=== PATIENT | male | born 1980 | race American Indian/Alaskan Native ===

== ENCOUNTER 2016-12-07 13:58 | Emergency (ER) | payer OTHER ==
[2016-12-07 14:11] VITALS: TEMP 97.9; O2SAT 98
[2016-12-07] MEDS ORDERED: Lidocaine 1%/Epinephrine 1:100000 30 ml vial IJ STA (14:35)
--- NOTE | 2016-12-07 14:48 | C.PDOC ---
History Of Present Illness 36 yr old male presents to ER with a left axilla abscess. Patient states he was seen 2 days ago and was evaluated and given antibiotics. Patient reports the wound is now draining. Patient denies fever, nausea, vomiting, chest pain, SOB, back pain, weakness or numbness. Time Seen by Provider: 12/07/16 14:30 Chief Complaint (Nursing): Abnormal Skin Integrity History Per: Patient History/Exam Limitations: no limitations Onset/Duration Of Symptoms: Days (2 days) Past Medical History Reviewed: Historical Data, Nursing Documentation, Vital Signs Vital Signs: Last Vital Signs Temp 97.9 F 12/07/16 14:09 Pulse 81 12/07/16 14:09 Resp 16 12/07/16 14:09 BP 151/95 H 12/07/16 14:09 Pulse Ox 98 12/07/16 15:34 Family History: States: No Known Family Hx - Social History Hx Tobacco Use: Yes Hx Alcohol Use: No Hx Substance Use: No - Immunization History Hx Tetanus Toxoid Vaccination: Yes Hx Influenza Vaccination: No Hx Pneumococcal Vaccination: No Review Of Systems Except As Marked, All Systems Reviewed And Found Negative. Constitutional: Negative for: Fever Cardiovascular: Negative for: Chest Pain Respiratory: Negative for: Shortness of Breath Gastrointestinal: Negative for: Nausea, Vomiting Musculoskeletal: Negative for: Back Pain Skin: Positive for: Other (Abscess to the left axilla) Neurological: Negative for: Weakness, Numbness Physical Exam - Physical Exam Appears: Non-toxic, No Acute Distress Skin: Warm, Dry Head: Atraumatic, Normacephalic Throat: Normal, No Erythema, No Exudate Neck: Normal, Normal ROM, No Paracervical Tenderness, No Step Off Deformity, Supple Chest: Symmetrical, No Tenderness Cardiovascular: Rhythm Regular, No Murmur Respiratory: Normal Breath Sounds, No Rales, No Rhonchi, No Stridor, No Wheezing Extremity: Normal ROM, No Swelling, Other (Left Axilla - 3cm area of erythema and induration with purulent discharge. Mild tender to palpation. ) Neurological/Psych: Oriented x3, Normal Speech, Normal Motor ED Course And Treatment O2 Sat by Pulse Oximetry: 98 - Incision & Drainage Of Abscess Anesthesia: Lidocaine 1%, With Epi Prep Used: Betadine Procedure: Incised W/Scalpel Blade#: (11), Drained Pus, Irrigated Cavity W/ Saline, Probed To Break Up Loculations, Packed W/Gauze Medical Decision Making Medical Decision Making: abscess drained. 2 day wound check. Disposition - Disposition Disposition: HOME/ ROUTINE Disposition Time: 15:35 Condition: STABLE Additional Instructions: please follow up with your doctor. return to er with worsening symptoms. return to er in 2 days or your doctor for wound check Instructions: Abscess Incision and Drainage (ED) - Clinical Impression Clinical Impression: Abscess - Scribe Statement The provider has reviewed the documentation as recorded by the Pancho Solorio Provider Attestation: All medical record entries made by the Pancho were at my direction and personally dictated by me. I have reviewed the chart and agree that the record accurately reflects my personal performance of the history, physical exam, medical decision making, and the department course for this patient. I have also personally directed, reviewed, and agree with the discharge instructions and disposition.
[2016-12-07 15:51] VITALS: BP 147/88; PULSE 79; RESP 18
== END 2016-12-07 15:59 | disposition home or self-care (01) ==
LOC: C.ER 13:58
DX: L02.412 Cutaneous abscess of left axilla (principal)

== ENCOUNTER 2016-12-09 04:53 | Emergency (ER) | payer OTHER ==
[2016-12-09 05:17] VITALS: TEMP 97.5; O2SAT 97
--- NOTE | 2016-12-09 05:38 | C.PDOC ---
History Of Present Illness 36 year old pt returns to ED for wound check and package removal for an incision and drainage of left axillary abscess done 2 days ago. Pt denies any fever or any other complaints. Time Seen by Provider: 12/09/16 05:20 Chief Complaint (Nursing): Wound Check History Per: Patient History/Exam Limitations: no limitations Onset/Duration Of Symptoms: Days Ago Past Medical History Reviewed: Historical Data, Nursing Documentation, Vital Signs Vital Signs: Last Vital Signs Temp 97.5 F L 12/09/16 05:02 Pulse 80 12/09/16 05:48 Resp 14 12/09/16 05:48 BP 140/90 12/09/16 05:48 Pulse Ox 97 12/09/16 05:58 - Medical History PMH: No Chronic Diseases Family History: States: Unknown Family Hx - Social History Hx Tobacco Use: Yes Hx Alcohol Use: No Hx Substance Use: No - Immunization History Hx Tetanus Toxoid Vaccination: Yes Hx Influenza Vaccination: No Hx Pneumococcal Vaccination: No Review Of Systems Except As Marked, All Systems Reviewed And Found Negative. Constitutional: Negative for: Fever Skin: Positive for: Other (wound left axila) Physical Exam - Physical Exam Appears: Well, No Acute Distress Skin: Warm, Dry, Other (packed wound to left axilla with localized induration and mildly fluctuant) Eye(s): bilateral: Normal Inspection, PERRL Extremity: Normal ROM, No Tenderness Additional Physical Exam Comments: Pat wound to the left auxiliary with area localized induration. ED Course And Treatment O2 Sat by Pulse Oximetry: 97 Pulse Ox Interpretation: Normal Progress Note: Package removed from wound. Purulent material excreted from wound then Wound was irrigated with saline and dressed. Disposition Counseled Patient/Family Regarding: Diagnosis, Need For Followup, Rx Given - Disposition Referrals: [facility] [Outside] Disposition: HOME/ ROUTINE Disposition Time: 05:34 Condition: STABLE Additional Instructions: CONTINUE PO ANTIBIOTICS APPLY WARM COMPRESS TO AREA FOLLOW UP IN CLINIC' RETURN TO ER IF PAIN N WORSEN Instructions: Acute Wound Care (ED) - Clinical Impression Clinical Impression: Visit for wound check, Abscess packing removal - Scribe Statement The provider has reviewed the documentation as recorded by the Scribe Hugh Reyez All medical record entries made by the Scribe were at my direction and personally dictated by me. I have reviewed the chart and agree that the record accurately reflects my personal performance of the history, physical exam, medical decision making, and the department course for this patient. I have also personally directed, reviewed, and agree with the discharge instructions and disposition.
[2016-12-09 05:49] VITALS: BP 140/90; PULSE 80; RESP 14
== END 2016-12-09 05:50 | disposition home or self-care (01) ==
LOC: C.ER 04:53
DX: Z48.00 Encounter for change or removal of nonsurgical wound dressing (principal)